=== PATIENT | male | born 1935 | race Caucasian/White ===

== ENCOUNTER 2018-10-09 15:20 | Inpatient (IN) ==
--- NOTE | 2018-10-09 15:34 | Emergency Department Note ---
Altered Mental Status HPI - General Chief Complaint: Altered Mental Status Stated Complaint: altered LOC Time Seen by Provider: 10/09/18 15:28 Source: EMS Mode of arrival: wheelchair Limitations: no limitations - History of Present Illness HPI Narrative: This patient comes from [facility] longterm because of decreased level of consciousness. His blood pressure is low at 82 systolic. Medics said he was not very responsive until they gave him some fluid and then he started to perk up a bit. He is currently being treated for UTI. He is a DNR. Unable to get any history from the patient currently. He is on Coumadin and his stool is guaiac negative. Heart rate was 95. Mclaughlin catheter was removed and will be replaced. - Related Data Home Medications Medication Instructions Recorded Confirmed arginine 7 gram-glutam 7 each PO BID each 03/07/18 04/02/18 gram-CaHMB 1.5 [id number]-[id number]-min oral pwd pkt desonide 0.05 % topical cream 1 applic TOPICAL BID 03/07/18 05/15/18 ketoconazole 2 % shampoo 1 applic TOPICAL Q2W 03/07/18 05/15/18 Previous Rx's Medication Instructions Recorded acetaminophen 500 mg tablet 1,000 mg PO Q6H PRN #60 tab 12/13/17 ascorbic acid (vitamin C) 1,000 mg 1,000 mg PO QDAY #90 tab 12/13/17 tablet carbidopa 25 mg-levodopa 100 mg 2 tab PO TID #540 tab 12/13/17 tablet carboxymethylcellulose sodium 0.5 1 drp OPHTHALMIC QID PRN #30 ml 12/13/17 % eye drops cholecalciferol (vitamin D3) 5,000 5,000 unit PO QDAY #90 cap 12/13/17 unit capsule docusate sodium 100 mg capsule 100 mg PO QDAY #90 cap 12/13/17 finasteride 5 mg tablet 5 mg PO QDAY #90 tab 12/13/17 flaxseed oil 1,000 mg capsule 1,000 mg PO QDAY #90 cap 12/13/17 lactobacillus combination no.10 20 20,000 mmu cells PO QDAY #90 cap 12/13/17 billion cell capsule levothyroxine 137 mcg capsule 137 mcg PO QDAY #90 cap 12/13/17 loperamide 2 mg capsule 2 mg PO Q1-4H PRN #90 cap 12/13/17 losartan 25 mg tablet 25 mg PO QDAY #90 tab 12/13/17 magnesium oxide 400 mg (241.3 mg 400 mg PO QDAY #90 tab 12/13/17 magnesium) tablet pantoprazole 40 mg tablet,delayed 40 mg PO QDAY #90 tab 12/13/17 release ropinirole 0.5 mg tablet 0.5 mg PO TID #270 tab 12/13/17 sennosides 8.6 mg tablet 8.6 mg PO BID #180 tab 12/13/17 tamsulosin 0.4 mg capsule 0.8 mg PO QDAY #180 cap 12/13/17 tizanidine 2 mg tablet 2 mg PO BID #180 tab 12/13/17 warfarin 2.5 mg tablet 2.5 mg PO .COMPLEX #90 tab 12/13/17 warfarin 5 mg tablet 5 mg PO .COMPLEX #90 tab 12/13/17 tramadol 50 mg tablet 100 mg PO Q6H PRN #60 tab 02/13/18 ciprofloxacin 500 mg tablet 500 mg PO BID #10 tab 07/27/18 nitrofurantoin 100 mg PO BID #10 cap 07/30/18 monohydrate/macrocrystals 100 mg capsule hydrocodone 7.5 mg-acetaminophen 1 tab PO BID #60 tab 09/28/18 325 mg tablet Allergies Allergy/AdvReac Type Severity Reaction Status Date / Time NSAIDS (Non-Steroidal Allergy Intermediate Hives Verified 10/09/18 15:25 Anti-Inflamma aspirin AdvReac Intermediate Abdominal Verified 10/09/18 15:25 Pain Review of Systems Limitations: ROS unobtainable due to patients medical condition Past Medical History - Past Medical History FOR[facility]LY [facility], [facility] Narrative: Medical History (Last Reviewed 04/02/18 @ 13:17 by Bessie Ko RN) Leg pain (Chronic) Low back pain (Chronic) Forgetfulness (Chronic) Urinary retention (Chronic) Retention of fluid (Chronic) Chest pain (Chronic) Parkinson disease, symptomatic (Chronic) BPH without obstruction/lower urinary tract symptoms (Chronic) Osteoarthritis (Chronic) Patellar fracture (Chronic) Hypertension, essential (Chronic) Tremor (Chronic 08/20/14) Malignant melanoma of skin, unspecified (Chronic) Sepsis (Chronic) Closed rib fracture (Chronic) Radial fracture (Chronic) Hx of venous thrombosis and embolism (Chronic) Peptic ulcer disease (Chronic) Closed patellar sleeve fracture (Chronic) Nocturnal leg cramps (Chronic 08/20/14) Nasal bones, closed fracture (Chronic) Systolic murmur (Chronic 09/08/14) Loss of balance (Chronic 09/08/14) Hypothyroidism (acquired) (Chronic) Hyperlipidemia (Chronic) Closed hip fracture (Chronic) Diverticulosis of colon (Chronic) Dehydration (Chronic 08/01/14) Degenerative joint disease (Chronic) Pulse pressure decrease (Chronic 08/20/14) Hx of colonic polyps (Chronic) Clostridium difficile infection (Chronic) Barretts esophagus (Chronic) Angina at rest (Chronic) Venous thromboembolism (Chronic) 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) 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) Atrial fibrillation (Chronic) Past Surgical History (Last Reviewed 04/02/18 @ 13:17 by Bessie Ko RN) Hx of tonsillectomy (Chronic) History of intraocular lens implant (Chronic) History of left hip replacement (Chronic) History of hemorrhoidectomy (Chronic) Hx of surgical procedure (Chronic) History of esophagogastroduodenoscopy (Chronic 07/23/13) Hx of arthroscopy of right knee (Chronic) History of adenoidectomy (Chronic) History of hip replacement (Chronic) Family History (Last Reviewed 04/02/18 @ 13:17 by Bessie Ko RN) Other No pertinent family history Medical history: Reports: atrial fibrillation, hyperlipidemia, hypertension, osteoporosis, thyroid disease, other (Parkinson's disease. Malignant melanoma skin. Sepsis. Venous thrombosis and embolism. Ulcer disease. C. difficile infection. Barretts Esophagus. Heart murmur. Urinary incontinence. DENIES osteoporosis. ). Denies: CVA, DM, myocardial infarction Surgical history ED: Reports: non-contributory - Social History smoking status: Former smoker Alcohol use: Reports: None Drug use: Reports: none Physical Exam Limitations: altered mental status General appearance: in no apparent distress, lethargic Head: atraumatic, normocephalic Eye: Present: normal appearance ENT: mucous membranes dry Neck: Present: normal inspection Chest: Present: normal inspection Respiratory: Present: normal lung sounds bilaterally Cardiovascular: Present: regular rate, normal rhythm, normal heart sounds Abdominal: Present: soft. Absent: distention, tenderness Rectal: Present: heme (-) stool Skin: Present: warm, dry Course Vital Signs Temperature 97.9 F 10/09/18 15:21 Pulse Rate 100 H 10/09/18 15:21 Respiratory Rate 36 H 10/09/18 15:21 Blood Pressure 87/68 10/09/18 15:21 Temperature 98.3 F 10/09/18 17:48 Pulse Rate 34 L 10/09/18 17:46 Respiratory Rate 39 H 10/09/18 17:48 Blood Pressure 69/54 10/09/18 17:46 Pulse Oximetry (%) 79 L 10/09/18 17:46 Altered Mental Status - MDM Narrative Medical decision making narrative: Patient's chest x-ray shows significant heart failure and pulmonary edema. He did receive about a liter of fluid and began to be in somewhat more respiratory distress and more junky in his lungs. We have stopped his fluids and will initiate levo fed for hypotension although his current blood pressure is 96 systolic. We will also initiate Lasix. The patient is a DNR but did agree to pressors but does not want to be intubated. BiPAP would be okay. He also would like to avoid the ICU if possible. When the patient initially presented we were concerned about the possibility of urosepsis since he had a known UTI and was on antibiotic. Also concerned about the possibility of a GI bleed initially but his stool was guaiac negative. EKG did come back showing potentially an anterior STEMI and was a change from a year ago. Patient denied have any chest pain today. Despite being on both Levophed and vasopressin his blood pressure remains 61 systolic. His O2 was 61 on a blood gas and his PCO2 was 24. Troponin did come back up 0.9 and CK-MB of 27. We had a [id number] discussion with the patient and his power of corporate attorney on what to do next. The patient is a DNR but did tell at least one provider that he would like to have a cardiology intervention if possible. I talked to the high school band teacher at [facility] who says the patient is too high risk to take to the [employer] with a very high mortality no matter what is done. I talked with the power corporate attorney about this and she agreed not to pursue cardiac intervention. Patient will be admitted to the hospital by Dr. Espinoza. - Lab Data Result diagrams: 10/09/18 16:23 10/09/18 16:23 Lab Results 10/09/18 10/09/18 10/09/18 Range/Units 16:23 16:23 16:23 WBC 9.1 (4.5-11.0) K/mcL RBC 3.26 L (4.50-5.90) M/mcL Hgb 10.6 L (13.5-16.5) g/dL Hct 32.9 L (41.0-55.0) % MCV 101.0 H (80.0-100.0) fL MCH 32.4 (26.0-34.0) pg MCHC 32.1 (31.0-36.0) g/dL RDW 14.4 (11.5-14.5) % Plt Count 335 (140-440) K/mcL MPV 8.7 (7.4-10.4) fL Total Counted 100 Seg Neutrophils % 68 (38-78) % Band Neutrophils % 9 (0-10) % Lymphocytes % 9 L (15-49) % Monocytes % (Manual) 10 (1-12) % Reactive Lymphocytes 4 H (0-2) % Platelet Estimate Normal (NORMAL) RBC Morphology Abnormal (NORMAL) Macrocytosis 1+ A (NONE SEEN) VBG Lactic Acid 2.5 H (0.5-2.0) mmol/L Sodium 141 (133-145) mmol/L Potassium 4.7 (3.3-5.1) mmol/L Chloride 108 (96-108) mmol/L Carbon Dioxide 19 L (22-30) mmol/L Anion Gap 14.0 (8-16) BUN 43 H (8-23) mg/dl Creatinine 0.9 (0.7-1.2) mg/dl GFR Calculation 78 Glucose 119 H (70-105) mg/dL Calcium 8.4 L (8.6-10.4) mg/dl Total Bilirubin 0.5 (0.0-1.0) mg/dL AST 38 H (0-37) U/l ALT < 5 (0-40) U/l Alkaline Phosphatase 84 (39-117) U/L Total Creatine Kinase 178 (24-195) IU/L CK-MB (CK-2) 27.8 H (0-4.9) ng/ml Myoglobin 442 H (28-72) ng/ml Troponin T (0-0.03) ng/ml Total Protein 6.4 (5.9-8.4) gm/dL Albumin 3.1 L (3.2-5.2) gm/dL Globulin 3.3 (2.2-3.7) gm/dL Albumin/Globulin Ratio 0.9 L (1.0-2.3) Procalcitonin (<0.10) ng/mL Urine Color Urine Appearance Urine pH (5.0-9.0) Ur Specific [place] (1.000-1.035) Urine Protein (NEG) mg/dL Urine Glucose (UA) (NEG) mg/dL Urine Ketones (NEG) mg/dL Urine Occult Blood (<0.03) mg/dL Urine Nitrate (NEG) Urine Bilirubin (NEG) mg/dL Urine Urobilinogen (NEG) mg/dL Ur Leukocyte Esterase (NEG) /uL Urine RBC (0-1) /hpf Urine WBC (0-4) /hpf Ur Squamous Epith Cells (0-4) /hpf Ur Transition Epith Cell (0-2) /hpf Calcium Oxalate Crystal (0) /hpf Urine Bacteria (0) /hpf Hyaline Casts (0-2) /lpf Urine Mucus (0) /hpf Ur Culture Indicated? 10/09/18 10/09/18 10/09/18 Range/Units 16:23 16:23 16:46 WBC (4.5-11.0) K/mcL RBC (4.50-5.90) M/mcL Hgb (13.5-16.5) g/dL Hct (41.0-55.0) % MCV (80.0-100.0) fL MCH (26.0-34.0) pg MCHC (31.0-36.0) g/dL RDW (11.5-14.5) % Plt Count (140-440) K/mcL MPV (7.4-10.4) fL Total Counted Seg Neutrophils % (38-78) % Band Neutrophils % (0-10) % Lymphocytes % (15-49) % Monocytes % (Manual) (1-12) % Reactive Lymphocytes (0-2) % Platelet Estimate (NORMAL) RBC Morphology (NORMAL) Macrocytosis (NONE SEEN) VBG Lactic Acid (0.5-2.0) mmol/L Sodium (133-145) mmol/L Potassium (3.3-5.1) mmol/L Chloride (96-108) mmol/L Carbon Dioxide (22-30) mmol/L Anion Gap (8-16) BUN (8-23) mg/dl Creatinine (0.7-1.2) mg/dl GFR Calculation Glucose (70-105) mg/dL Calcium (8.6-10.4) mg/dl Total Bilirubin (0.0-1.0) mg/dL AST (0-37) U/l ALT (0-40) U/l Alkaline Phosphatase (39-117) U/L Total Creatine Kinase (24-195) IU/L CK-MB (CK-2) (0-4.9) ng/ml Myoglobin (28-72) ng/ml Troponin T 0.98 H* (0-0.03) ng/ml Total Protein (5.9-8.4) gm/dL Albumin (3.2-5.2) gm/dL Globulin (2.2-3.7) gm/dL Albumin/Globulin Ratio (1.0-2.3) Procalcitonin < 0.05 (<0.10) ng/mL Urine Color Yellow Urine Appearance Turbid Urine pH 6.0 (5.0-9.0) Ur Specific [place] 1.029 (1.000-1.035) Urine Protein 100 A (NEG) mg/dL Urine Glucose (UA) Negative (NEG) mg/dL Urine Ketones 20 A (NEG) mg/dL Urine Occult Blood >=1.0 A (<0.03) mg/dL Urine Nitrate Neg (NEG) Urine Bilirubin Neg (NEG) mg/dL Urine Urobilinogen 2.0 A (NEG) mg/dL Ur Leukocyte Esterase 250 A (NEG) /uL Urine RBC > 182 H (0-1) /hpf Urine WBC > 182 H (0-4) /hpf Ur Squamous Epith Cells 15 H (0-4) /hpf Ur Transition Epith Cell 3 H (0-2) /hpf Calcium Oxalate Crystal Mod A (0) /hpf Urine Bacteria Many A (0) /hpf Hyaline Casts 491 H (0-2) /lpf Urine Mucus Many A (0) /hpf Ur Culture Indicated? No - Radiology Data Radiology results reviewed: Yes I reviewed the patient's radiology results. Critical Care Time Critical Care Time: Yes Total Critical Care Time: 1 Disposition Pt seen by [facility]/PA only: No Clinical Impression: Altered mental status, Urinary tract infection, Acute myocardial infarction, Cardiogenic shock Disposition: Xfer As Outpt/Obs ([facility]) Condition: Critical Referrals: Sudarshan Fuller MD [Primary Care Provider] - Time of Disposition: 18:07
--- NOTE | 2018-10-09 16:04 | XRay Report ---
INDICATION: Cough TECHNIQUE: AP chest x-ray,AP portable chest x-ray COMPARISON: Previous chest x-rays dated 04/20/2016, 11/12/2014, 11/10/2014 FINDINGS:There is cardiomegaly, increased. Bilateral diffuse pulmonary parenchymal infiltrates. There are septal lines in the periphery. Appearance is consistent with cardiomegaly and congestive heart failure. There are probable pleural effusions. Pneumonia is not excluded. Findings are new since previous examination. IMPRESSION: 1. Cardiomegaly and findings consistent with congestive heart disease. 2. Findings are new since 04/20/2016 Interpreted and Authenticated by: Ravindra Low 10/09/18
[2018-10-09] MEDS ORDERED: FUROSEMIDE 40 MG/4 ML VIAL IV ONE (16:12)
[2018-10-09] MEDS ORDERED: 0.9 % SODIUM CHLORIDE 250 ML IV SCH (16:15)
[2018-10-09] MEDS ORDERED: NOREPINEPHRINE BITARTRATE 16 MG in 0.9 % SODIUM CHLORIDE 234 ML IV SCH (16:15)
[2018-10-09] MEDS ORDERED: LEVOFLOXACIN 750 MG/150 ML BAG IV ONE (16:30)
[2018-10-09] MEDS ORDERED: cefTRIAXone 1 GM VIAL IV ONE (16:30)
[2018-10-09] MEDS ORDERED: VASOPRESSIN 20 UNIT in DEXTROSE 5% IN WATER 99 ML IV ONE (17:05)
[2018-10-09 17:19] LABS: Mean Corpuscular HGB Conc 32.1 g/dL (31.0-36.0); Platelet Count 335 K/mcL (140-440); RBC 3.26 M/mcL (4.50-5.90); Red Cell Distribution Width 14.4 % (11.5-14.5)
[2018-10-09 17:46] LABS: Appearance,Urine TURBID; Bacteria,Urine MANY /hpf (0); Bilirubin,Urine NEG (NEG); Calcium Oxalate Crystals,Urine MOD /hpf (0); Color,Urine YELLOW; Glucose,Urine (UA) NEGATIVE (NEG); Leukocyte Esterase,Urine 250 /uL (NEG); Mucus,Urine MANY /hpf (0); Protein,Urine 100 mg/dL (NEG); Specific Gravity,Urine 1.029 (1.000-1.035); Urine Blood >=1.0 mg/dL (<0.03); Urine Hyaline Cast 491 /lpf (0-2); Urine RBC > 182 /hpf (0-1); Urine Squamous Epithelial Cell 15 /hpf (0-4); Urine Transitional Epi Cells 3 /hpf (0-2); Urine WBC > 182 /hpf (0-4)
[2018-10-09 17:46] LABS: ALT/SGPT < 5 U/l (0-40); Albumin 3.1 gm/dL (3.2-5.2); Albumin/Globulin Ratio 0.9 (1.0-2.3); Alkaline Phosphatase 84 U/L (39-117); Blood Urea Nitrogen 43 mg/dl (8-23); Creatine Kinase 178 IU/L (24-195); Creatine Kinase MB 27.8 ng/ml (0-4.9); Myoglobin 442 ng/ml (28-72)
[2018-10-09 17:56] LABS: Band Neutrophils % 9 % (0-10); Lymphocytes % 9 % (15-49); Macrocytosis 1+ (NONE SEEN); Monocytes % (Manual) 10 % (1-12); Platelet Estimate NORMAL (NORMAL); RBC Morphology ABNORMAL (NORMAL); Segmented Neutrophils % 68 % (38-78)
--- NOTE | 2018-10-09 18:13 | Internal Med History&Physical ---
Medical - H&P: [facility] Patient information: Note initiated : 10/09/18 at 6:09 pm Service Date, if different from initiated Date: [] Patient: Hugo Huggins 83 y/o M admitted on for altered LOC. Chief Complaint: [] History of present illness: Mr. Huggins is a 83 year old M [place] resident, brought to the hospital to evaluate for altered mentals tatus, hypotenstion, hypoxia. The patient was being treated for UTI at SNF facility. The work up in the ER shows that the patient has EKG suggestive for ACute STEMI, X ray shows acute congestive heart failure, pt was hypotensive, and was placed on 2 pressor agents, his bp despite this remained low, the patient initially declined aggresive interventions to the ER provider, then later when I spoke to him he noted he would want treatment, however I am not sure how much he understood his options as he was awake but seemed a bit confused. Cardiolgoist was called by ER and was noted not to be a candidate for any intervention. The ER provider spoke with the POA, who noted that the patient has expressed wishes to just be kept comfortable when his time comes. AT this time , Id not feel that there is any aggressive intervention which can be planned at this hospital, except comfort care for this patient. Will admit him to hospital with the goal of keeping him comfortable. 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 obstruction/lower urinary tract symptoms (Chronic) Osteoarthritis (Chronic) Patellar fracture (Chronic) Hypertension, essential (Chronic) Tremor (Chronic 08/20/14) Malignant melanoma of skin, unspecified (Chronic) Sepsis (Chronic) Closed rib fracture (Chronic) Radial fracture (Chronic) Hx of venous thrombosis and embolism (Chronic) Peptic ulcer disease (Chronic) Closed patellar sleeve fracture (Chronic) Nocturnal leg cramps (Chronic 08/20/14) Nasal bones, closed fracture (Chronic) Systolic murmur (Chronic 09/08/14) Loss of balance (Chronic 09/08/14) Hypothyroidism (acquired) (Chronic) Hyperlipidemia (Chronic) Closed hip fracture (Chronic) Diverticulosis of colon (Chronic) Dehydration (Chronic 08/01/14) Degenerative joint disease (Chronic) Pulse pressure decrease (Chronic 08/20/14) Hx of colonic polyps (Chronic) Clostridium difficile infection (Chronic) Barretts esophagus (Chronic) Angina at rest (Chronic) Venous thromboembolism (Chronic) 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) [facility] current use of anticoagulant therapy (Chronic) Atrial fibrillation (Chronic) Surgical history: Past Surgical History (Last Reviewed 04/02/18 @ 13:17 by Bessie Ko, MARSHA) Hx of tonsillectomy (Chronic) History of intraocular lens implant (Chronic) History of left hip replacement (Chronic) History of hemorrhoidectomy (Chronic) Hx of surgical procedure (Chronic) History of esophagogastroduodenoscopy (Chronic 07/23/13) Hx of arthroscopy of right knee (Chronic) History of adenoidectomy (Chronic) History of hip replacement (Chronic) Pertinent family history: Family History (Last Reviewed 04/02/18 @ 13:17 by Bessie Ko RN) Other No pertinent family history Social history: lives in [facility] Medical - H&P: Meds Home Medications Medication Instructions Recorded Confirmed Type acetaminophen 500 mg tablet 1,000 mg PO Q6H PRN #60 tab 12/13/17 05/15/18 Rx ascorbic acid (vitamin C) 1,000 mg 1,000 mg PO QDAY #90 tab 12/13/17 05/15/18 Rx tablet carbidopa 25 mg-levodopa 100 mg 2 tab PO TID #540 tab 12/13/17 05/15/18 Rx tablet carboxymethylcellulose sodium 0.5 1 drp OPHTHALMIC QID PRN #30 ml 12/13/17 05/15/18 Rx % eye drops cholecalciferol (vitamin D3) 5,000 5,000 unit PO QDAY #90 cap 12/13/17 05/15/18 Rx unit capsule docusate sodium 100 mg capsule 100 mg PO QDAY #90 cap 12/13/17 05/15/18 Rx finasteride 5 mg tablet 5 mg PO QDAY #90 tab 12/13/17 05/15/18 Rx flaxseed oil 1,000 mg capsule 1,000 mg PO QDAY #90 cap 12/13/17 05/15/18 Rx lactobacillus combination no.10 20 20,000 mmu cells PO QDAY #90 cap 12/13/17 05/15/18 Rx billion cell capsule levothyroxine 137 mcg capsule 137 mcg PO QDAY #90 cap 12/13/17 05/15/18 Rx loperamide 2 mg capsule 2 mg PO Q1-4H PRN #90 cap 12/13/17 05/15/18 Rx losartan 25 mg tablet 25 mg PO QDAY #90 tab 12/13/17 05/15/18 Rx magnesium oxide 400 mg (241.3 mg 400 mg PO QDAY #90 tab 12/13/17 05/15/18 Rx magnesium) tablet pantoprazole 40 mg tablet,delayed 40 mg PO QDAY #90 tab 12/13/17 05/15/18 Rx release ropinirole 0.5 mg tablet 0.5 mg PO TID #270 tab 12/13/17 05/15/18 Rx sennosides 8.6 mg tablet 8.6 mg PO BID #180 tab 12/13/17 05/15/18 Rx tamsulosin 0.4 mg capsule 0.8 mg PO QDAY #180 cap 12/13/17 05/15/18 Rx tizanidine 2 mg tablet 2 mg PO BID #180 tab 12/13/17 05/15/18 Rx warfarin 2.5 mg tablet 2.5 mg PO .COMPLEX #90 tab 12/13/17 05/15/18 Rx warfarin 5 mg tablet 5 mg PO .COMPLEX #90 tab 12/13/17 04/02/18 Rx tramadol 50 mg tablet 100 mg PO Q6H PRN #60 tab 02/13/18 04/02/18 Rx arginine 7 gram-glutam 7 each PO BID each 03/07/18 04/02/18 History gram-CaHMB 1.5 [id number] oral pwd pkt desonide 0.05 % topical cream 1 applic TOPICAL BID 03/07/18 05/15/18 History ketoconazole 2 % shampoo 1 applic TOPICAL Q2W 03/07/18 05/15/18 History ciprofloxacin 500 mg tablet 500 mg PO BID #10 tab 07/27/18 Rx nitrofurantoin 100 mg PO BID #10 cap 07/30/18 Rx monohydrate/macrocrystals 100 mg capsule hydrocodone 7.5 mg-acetaminophen 1 tab PO BID #60 tab 09/28/18 Rx 325 mg tablet Allergies Allergy/AdvReac Type Severity Reaction Status Date / Time NSAIDS (Non-Steroidal Allergy Intermediate Hives Verified 10/09/18 15:25 Anti-Inflamma aspirin AdvReac Intermediate Abdominal Verified 10/09/18 15:25 Pain Medical - H&P: Exam - Constitutional Vitals: Temp Pulse Resp BP Pulse Ox 98.4 F 34 L 40 H 66/56 79 L 10/09/18 18:06 10/09/18 17:46 10/09/18 18:06 10/09/18 18:06 10/09/18 17:46 Exam: Constitutional; Afebrile, thin frail individual cooperative, awake but in resp distress Eyes- No icterus, , No periorbital swelling Ears- Ext ear normal, hearing normal to conversation. Neck- Midline trachea, supple Respiratory system: Air Entry equal on both sides, corey crackles, tachypneic, in respiratory distress. CVS- Rate tachycardic rhythm regular, S1,S2 heard, no gross murmur heard. POINT OF CARE Echo shows not much movement of the left ventricle, in comparison to normal lvef in May 2018 Abdomen- Soft nontender abdomen, no organomegaly, no tenderness, no guarding or rigidity, SPAR CAP BEVELER- AOOx3, moving all extremities, no gross focal deficit noted. Medical - H&P: Reslt - Labs CBC & Chem 7: 10/09/18 16:23 10/09/18 16:23 Labs: Short CBC 10/09/18 Range/Units 16:23 WBC 9.1 (4.5-11.0) K/mcL Hgb 10.6 L (13.5-16.5) g/dL Hct 32.9 L (41.0-55.0) % Plt Count 335 (140-440) K/mcL BMP 10/09/18 16:23 Sodium 141 Potassium 4.7 Chloride 108 Carbon Dioxide 19 L BUN 43 H Creatinine 0.9 Glucose 119 H Calcium 8.4 L Cardiac Enzymes 10/09/18 10/09/18 Range/Units 16:23 16:23 Total Creatine Kinase 178 (24-195) IU/L CK-MB (CK-2) 27.8 H (0-4.9) ng/ml Troponin T 0.98 H* (0-0.03) ng/ml Liver Function 10/09/18 Range/Units 16:23 Total Bilirubin 0.5 (0.0-1.0) mg/dL AST 38 H (0-37) U/l ALT < 5 (0-40) U/l Alkaline Phosphatase 84 (39-117) U/L Albumin 3.1 L (3.2-5.2) gm/dL Urine 10/09/18 Range/Units 16:46 Urine Color Yellow Urine Appearance Turbid Urine pH 6.0 (5.0-9.0) Ur Specific [place] 1.029 (1.000-1.035) Urine Protein 100 A (NEG) mg/dL Urine Glucose (UA) Negative (NEG) mg/dL Medical - H&P: A/P - Narrative A/P Narrative: A/P Acute cardiogenic shock STEMI Urinary tract infection Parkinsons disease Urinary tract infeciton Lactic Acidosis plan Patient with STEMI in cardiogenic shock,not a candidate for any aggressive interventions, nor as per POA would want one, Admitted to hospital for comfort measures only. Morphine ativan for pain control and dyspnea and anxiety imminent.
[2018-10-09] MEDS ORDERED: LORazepam 2 MG/ML VIAL IV PRN (19:09)
[2018-10-09] MEDS ORDERED: LACTOPEROXI/GLUC OXID/POT THIO 1 EACH GEL..EA. TOPICAL PRN (19:09)
[2018-10-09] MEDS ORDERED: NALOXONE HCL 0.4 MG/ML VIAL IV PRN (19:09)
[2018-10-09] MEDS ORDERED: ONDANSETRON 4 MG/2 ML VIAL IV PRN (19:09)
--- NOTE | 2018-10-09 21:57 | Death Note ---
Discharge Sum: Prov - Provider Patient information: Note initiated : 10/09/18 at 9:56 pm Service Date, if different from initiated Date: [] Patient: Hugo Huggins a 83 y/o M admitted on 10/09/18 for altered LOC. Chief Complaint: [] Primary care physician: Sudarshan Fuller Admitting clinician: Corrie Espinoza Consults: 10/09/18 17:28 Consult to Physician [CONS] Stat Comment: Consulting Provider: Corrie Espinoza Reason For Exam: Physician to Consult Pronouncing clinician: Corrie Espinoza Discharge Sum: Summary - Date and Time Date of admission: 10/09/18 19:07 Date of : 10/09/18 Time of : 20:47 - Summary Details: Mr. Huggins is a 83 year old M [place] resident, brought to the hospital to evaluate for altered mentals tatus, hypotenstion, hypoxia. The patient was being treated for UTI at SNF facility. The work up in the ER shows that the patient has EKG suggestive for ACute STEMI, X ray shows acute congestive heart failure, pt was hypotensive, and was placed on 2 pressor agents, his bp despite this remained low, the patient initially declined aggresive interventions to the ER provider, then later when I spoke to him he noted he would want treatment, however I am not sure how much he understood his options as he was awake but seemed a bit confused. Cardiolgoist was called by ER and was noted not to be a candidate for any intervention. The ER provider spoke with the POA, who noted that the patient has expressed wishes to just be kept comfortable when his time comes. AT this time , Id not feel that there is any aggressive intervention which can be planned at this hospital, except comfort care for this patient. Will admit him to hospital with the goal of keeping him comfortable. His is imminent Patient shortly after coming to the floor, Cause of Cardiogenic Shock / ST elevation CO - Additional Data Confirmation of as documented by pronouncing clinician: no pulse, no respirations, no heart sounds, pupils fixed and dilated Attending physician: Corrie Espinoza
[2018-10-09] MEDS ORDERED: 0.9 % SODIUM CHLORIDE 10 ML SYRINGE IV SCH ×2 (22:00)
== END 2018-10-09 20:31 | disposition expired ==
LOC: ED 15:20 → ICU 19:07
PROVIDERS: ADMIT Internal Medicine; ATTEND Internal Medicine